=== PATIENT | male | born 1975 | race African-American/Black ===

== ENCOUNTER 2016-10-14 19:53 | Emergency (ER) | payer BC, MEDICAID, OTHER, SELFPAY ==
[2016-10-14 20:35] LABS: MEAN CORPUSCULAR HEMOGLOBIN 31.9 pg (27.0-33.0); MEAN CORPUSCULAR HGB CONC 33.6 g/dl (32.0-36.5); MEAN CORPUSCULAR VOLUME 94.9 fl (80.0-96.0); RED CELL DISTRIBUTION WIDTH 14.1 % (11.5-14.5); WHITE BLOOD COUNT 7.1 K/mm3 (4.0-10.0)
[2016-10-14 20:41] LABS: INR 0.85
[2016-10-14 20:51] LABS: ANION GAP 12 MEQ/L (8-16); BLOOD UREA NITROGEN 15 MG/DL (7-18); CALCIUM LEVEL 9.4 MG/DL (8.5-10.1); CARBON DIOXIDE LEVEL 25 MEQ/L (21-32); CHLORIDE LEVEL 101 MEQ/L (98-107); CREATININE FOR GFR 0.99 MG/DL (0.70-1.30); GLOMERULAR FILTRATION RATE > 60.0 (>60); GLUCOSE, FASTING 86 MG/DL (70-105); POTASSIUM SERUM 4.3 MEQ/L (3.5-5.1); SODIUM LEVEL 138 MEQ/L (136-145)
[2016-10-14] MEDS ORDERED: KETOROLAC 30 MG/ML VIAL (J1885) As Ordered ONE (20:56)
[2016-10-14] MEDS ORDERED: ASPIRIN 81 MG CHEW TABLET As Ordered ONE (20:56)
--- NOTE | 2016-10-15 01:57 | EDDOCDS ---
Physician Documentation [facility] Name: Tristen Beard Age: 41 yrs Sex: Male : 1975 Arrival Date: 10/14/2016 Time: 19:53 Bed 13 Private MD: NO PRIMARY PHYSICIAN, . Disposition: 10/15/16 01:29 Discharged to Home/Self Care. Impression: Chondrocostal junction syndrome [Tietze]. - Condition is Stable. - Discharge Instructions: Costochondritis. - Prescriptions for ketorolac 10 mg Oral Tablet - take 1 tablet by ORAL route 3 times per day As needed MDD- 30mg. Up to 5 days total use.; 15 tablet. - Medication Reconciliation, Local Pharmacy Hours form. - Follow up: Private Physician; When: Call to arrange an appointment; Reason: Recheck today's complaints. - Problem is new. - Symptoms have improved. Historical: - Allergies: no known allergies; - Home Meds: 1. none - PMHx: back and leg pain; - PSHx: none; - Social history: Smoking status: Patient uses tobacco products, light tobacco smoker. No barriers to communication noted, The patient speaks fluent Persian, Speaks appropriately for age. - Family history: Not pertinent. - : The pt / caregiver states he / she is not on anticoagulants. Home medication list is obtained from the patient. - Exposure Risk Screening:: None identified. Vital Signs: 10/14 19:56 BP 120 / 80; Pulse 95; Resp 18 S; Temp 98.7(O); Pulse Ox 99% on R/A; Weight 81.65 kg / gr2 180.01 lbs (R); Height 5 ft. 7 in. (170.18 cm) (R); Pain 6/10; 20:16 BP 129 / 83 (auto/); af2 20:20 Pulse 76 MON; Resp 18 S; Pulse Ox 100% on R/A; af2 20:31 BP 118 / 77 (auto/); af2 20:31 Pulse 80 MON; Resp 18 S; Pulse Ox 99% on R/A; af2 20:46 BP 121 / 83 (auto/); af2 20:46 Pulse 90 MON; Pulse Ox 97% ; af2 21:01 BP 127 / 90 (auto/); af2 21:02 Pulse 94 MON; Resp 18 S; Pulse Ox 100% on R/A; af2 21:16 BP 126 / 92 (auto/); af2 21:16 Pulse 74 MON; Resp 18 S; Pulse Ox 98% on R/A; af2 21:31 BP 119 / 83 (auto/); af2 21:31 Pulse 80 MON; Resp 18 S; Pulse Ox 98% on R/A; af2 21:46 BP 119 / 79 (auto/); af2 21:46 Pulse 76 MON; Resp 18 S; Pulse Ox 95% on R/A; af2 22:16 BP 123 / 84 (auto/); af2 22:16 Pulse 70 MON; Resp 18 S; Pulse Ox 97% on R/A; af2 22:31 BP 121 / 76 (auto/); af2 22:31 Pulse 66 MON; Resp 18 S; Pulse Ox 96% on R/A; af2 22:46 BP 119 / 69 (auto/); af2 22:46 Pulse 62 MON; Resp 18 S; Pulse Ox 97% on R/A; af2 23:01 BP 141 / 93 (auto/); af2 23:01 Pulse 76 MON; Resp 18 S; Pulse Ox 98% on R/A; af2 23:16 BP 138 / 89 (auto/); af2 23:16 Pulse 74 MON; Resp 18 S; Pulse Ox 97% on R/A; af2 10/15 01:54 BP 125 / 85; Pulse 84; Resp 18; Temp 98.4(O); Pulse Ox 99% on R/A; Pain 0/10; [facility] 10/14 19:56 Body Mass Index 28.19 (81.65 kg, 170.18 cm) gr2 MDM: 10/14 20:04 ECG WITH READING ER PHYS+CARDIAG ordered. EDMS 20:20 Aspirin 324 mg PO once ordered. cs11 20:20 IV Saline Lock ordered. cs11 20:21 Chest, 2 View (pa\E\lat) Ordered. EDMS 20:21 CBC Ordered. EDMS 20:21 MED Profile Ordered. EDMS 20:21 Pt & Aptt Ordered. EDMS 20:21 Cardiac Marker Panel Ordered. EDMS 20:53 ketorolac 30 mg IVP once ordered. cs11 21:05 Financial registration complete. lucina 21:09 [facility] Payment Agreement was scanned into [employer] and attached to record. gjb 21:42 [facility] Plug Wirer Order ordered. cs11 22:[facility] complete. jlm 22:22 CARDIAC INJURY PROFILE Ordered. EDMS 22:22 TROPONIN Ordered. EDMS 22:25 ELECTROCARDIOGRAM ADULT ordered. EDMS 10/15 01:26 Pt & Aptt Reviewed. cs11 01:26 CBC Reviewed. cs11 01:26 MED Profile Reviewed. cs11 : Cardiac Marker Panel Reviewed. cs11 : CARDIAC INJURY PROFILE Reviewed. cs11 : TROPONIN Reviewed. cs11 Administered Medications: 10/14 21:03 Drug: Aspirin 324 mg [aspirin 81 mg chewable tablet (4 tabs)] Route: PO; af2 21:03 Drug: ketorolac 30 mg [ketorolac 30 mg/mL (1 mL) injection solution (1 mL)] Route: IVP; af2 Site: right antecubital; Signatures: Dispatcher MedHost EDYuki MuroRN RN jo3 Carl Mcgee DO DO cs11 Meeta Philip, Registered Vascular Technologist (Rvt) Unit jlm Ирина Osuna RN RN af2 Brittaney Braswellb Jeniffer DominguezRN RN kas2 The chart was reviewed and I authenticate all verbal orders and agree with the evaluation and treatment provided.Attachments: 21:09 [facility] Payment Agreement gjb MTDD
--- NOTE | 2016-10-15 01:58 | EDDOCDS ---
Nurse's Notes [facility] Name: Tristen Beard Age: 41 yrs Sex: Male : 1975 Arrival Date: 10/14/2016 Time: 19:53 Bed 13 Private MD: NO PRIMARY PHYSICIAN, . Diagnosis: Chondrocostal junction syndrome [Tietze] Presentation: 10/14 20:12 Presenting complaint: Patient states: Sharp stabbing chest pain that started at 0130. jo3 Pain is to left anterior chest and has radiated intermittently to left upper back. also has intermittent sharp pain and tingling to left arm. Aspirin was not taken prior to arrival. Adult Sepsis Screening: The patient does not have new or worsening altered mentation. Patient's respiratory rate is less than 22. Systolic blood pressure is greater than 100. Patient has a qSOFA score of 0- Negative Sepsis Screen. Suicide/Homicide risk assessment- the patient denies having any suicidal and/or homicidal ideations and does not present with any other emotional, behavioral or mental health complaints. Status: Patient is not a food service clerk or dependent. Transition of care: patient was not received from another setting of care. 20:12 Acuity: MARE Level 2 jo3 20:12 Method Of Arrival: Walkin/Carried/Asstd jo3 Triage Assessment: 20:15 General: Appears in no apparent distress, Behavior is anxious, cooperative. HIV jo3 screening NA for this visit Offered previously. Neurological: Level of Consciousness is awake, alert, Oriented to person, place, time. Cardiovascular: Chest pain is described as severe, radiates to left arm(s) back episodes are continuous began 8 hours. Respiratory: Airway is patent Respiratory effort is even, unlabored. GI: Reports nausea, vomiting. Derm: Skin is normal. Historical: - Allergies: no known allergies; - Home Meds: 1. none - PMHx: back and leg pain; - PSHx: none; - Social history: Smoking status: Patient uses tobacco products, light tobacco smoker. No barriers to communication noted, The patient speaks fluent Nigerian, Speaks appropriately for age. - Family history: Not pertinent. - : The pt / caregiver states he / she is not on anticoagulants. Home medication list is obtained from the patient. - Exposure Risk Screening:: None identified. Screenin:03 Screening information is obtained from the patient. Fall risk: No risks identified. af2 Assistance ADL's: requires no assistance with activities of daily living. Abuse/DV Screen: The patient / caregiver reports he/she is: not in a situation that causes fear, pain or injury. Nutritional screening: No deficits noted. Advance Directives: Currently, there is no health care proxy. home support is adequate. Assessment: 20:15 General: Appears in no apparent distress, Behavior is cooperative. Pain: Location: af2 chest Pain currently is 7 out of 10 on a pain scale. Neurological: Level of Consciousness is awake, alert, obeys commands, Oriented to person, place, time. Cardiovascular: Rhythm is sinus rhythm No ectopy. Chest pain is described as Pain is 7 out of 10 on a pain scale. states pain is aggravated by pressure on the area.. Respiratory: Airway is patent Respiratory effort is even, unlabored, Breath sounds are clear bilaterally. Derm: Skin is intact, is healthy with good turgor, Skin is normal. 21:15 General: Appears in no apparent distress, Behavior is appropriate for age, cooperative, af2 pt and SO updated regarding plan of care. states pain has been relieved. . Cardiovascular: Rhythm is sinus rhythm No ectopy. Chest pain is denied. Respiratory: Airway is patent Respiratory effort is even, unlabored. Derm: Skin is normal. 22:15 General: Appears in no apparent distress, Behavior is appropriate for age, cooperative. af2 Neurological: Level of Consciousness is awake, alert, obeys commands, Oriented to person, place, time. Respiratory: Airway is patent Respiratory effort is even, unlabored. Derm: Skin is normal. 23:18 General: Appears in no apparent distress, Behavior is appropriate for age, cooperative. af2 Neurological: Level of Consciousness is awake, alert, obeys commands, Oriented to person, place, time. Respiratory: Airway is patent Respiratory effort is even, unlabored. Derm: Skin is normal. 23:37 General: pt ambulates to bathroom independent at this time.. af2 10/15 00:36 General: Appears in no apparent distress, Behavior is cooperative. Neurological: Level af2 of Consciousness is awake, alert, obeys commands, Oriented to person, place, time. Cardiovascular: Rhythm is sinus rhythm with PACs. Respiratory: Airway is patent Respiratory effort is even, unlabored. Derm: Skin is normal. Vital Signs: 10/14 19:56 BP 120 / 80; Pulse 95; Resp 18 S; Temp 98.7(O); Pulse Ox 99% on R/A; Weight 81.65 kg gr2 (R); Height 5 ft. 7 in. (170.18 cm) (R); Pain 6/10; 20:16 BP 129 / 83 (auto/); af2 20:20 Pulse 76 MON; Resp 18 S; Pulse Ox 100% on R/A; af2 20:31 BP 118 / 77 (auto/); af2 20:31 Pulse 80 MON; Resp 18 S; Pulse Ox 99% on R/A; af2 20:46 BP 121 / 83 (auto/); af2 20:46 Pulse 90 MON; Pulse Ox 97% ; af2 21:01 BP 127 / 90 (auto/); af2 21:02 Pulse 94 MON; Resp 18 S; Pulse Ox 100% on R/A; af2 21:16 BP 126 / 92 (auto/); af2 21:16 Pulse 74 MON; Resp 18 S; Pulse Ox 98% on R/A; af2 21:31 BP 119 / 83 (auto/); af2 21:31 Pulse 80 MON; Resp 18 S; Pulse Ox 98% on R/A; af2 21:46 BP 119 / 79 (auto/); af2 21:46 Pulse 76 MON; Resp 18 S; Pulse Ox 95% on R/A; af2 22:16 BP 123 / 84 (auto/); af2 22:16 Pulse 70 MON; Resp 18 S; Pulse Ox 97% on R/A; af2 22:31 BP 121 / 76 (auto/); af2 22:31 Pulse 66 MON; Resp 18 S; Pulse Ox 96% on R/A; af2 22:46 BP 119 / 69 (auto/); af2 22:46 Pulse 62 MON; Resp 18 S; Pulse Ox 97% on R/A; af2 23:01 BP 141 / 93 (auto/); af2 23:01 Pulse 76 MON; Resp 18 S; Pulse Ox 98% on R/A; af2 23:16 BP 138 / 89 (auto/); af2 23:16 Pulse 74 MON; Resp 18 S; Pulse Ox 97% on R/A; af2 10/15 01:54 BP 125 / 85; Pulse 84; Resp 18; Temp 98.4(O); Pulse Ox 99% on R/A; Pain 0/10; kas2 10/14 19:56 Body Mass Index 28.19 (81.65 kg, 170.18 cm) gr2 Vitals: 10/14 19:56 Log In Time: October 14, 2016 at 19:56. gr2 19:57 RN notified that patient meets Red Flag criteria. gr2 ED Course: 19:54 Patient visited by Patt Johnson. gr2 19:54 Patient moved to Waiting gr2 19:55 NO PRIMARY PHYSICIAN, . is Private Physician. gr2 19:57 Patient visited by Patt Johnson. gr2 20:03 Ирина OsunaRN is Primary Nurse. jo3 20:03 Patient moved to 10 jo3 20:06 Carl Mcgee DO is Attending Physician. cs11 20:06 Patient visited by Carl Mcgee DO. cs11 20:07 EKG done. (by ED staff). Reviewed by Carl Mcgee DO. jb5 20:11 Patient visited by Asia Briones PCA. jb5 20:15 Triage Initiated jo3 20:15 technical clerk on. Pulse ox on. NIBP on. af2 20:15 Inserted saline lock: 18 gauge in right antecubital area and blood collected. The af2 patient tolerated the procedure well. 20:18 Patient visited by Yuki Reyna RN. jo3 20:54 Patient visited by Anastacia Lucas RN. lf1 21:04 The patient / caregiver is instructed regarding the plan of care and ED course. af2 21:06 Patient visited by Ирина Osuna RN. af2 21:09 [facility] Payment Agreement was scanned into [employer] and attached to record. gjb 21:55 Patient visited by Ирина Osuna RN. af2 22:28 Patient visited by Ирина Osuna RN. af2 23:17 Patient visited by Ирина Osuna RN. af2 23:19 Patient visited by Ирина Osuna RN. af2 23:38 Patient visited by Ирина Osuna RN. af2 23:57 Patient moved to 13 af2 10/15 00:05 Patient visited by Sergei Salmeron PCA. jmv 00:05 EKG done. (by ED staff). Reviewed by Carl Mcgee DO. jmv 00:38 Patient visited by Ирина Osuna RN. af2 01:09 Patient visited by Ирина Osuna RN. af2 01:55 Discontinued IV bleeding controlled, pressure dressing applied, No redness/swelling at kas2 site. No procedures done that require assistance. Administered Medications: 10/14 21:03 Drug: Aspirin 324 mg [aspirin 81 mg chewable tablet (4 tabs)] Route: PO; af2 21:03 Drug: ketorolac 30 mg [ketorolac 30 mg/mL (1 mL) injection solution (1 mL)] Route: IVP; af2 Site: right antecubital; Order Results: Lab Order: CBC; SPEC'M 10/14/16 20:18 Test: WHITE BLOOD COUNT; Value: 7.1; Range: 4.0-10.0; Units: K/mm3; Status: F Test: RED BLOOD COUNT; Value: 5.15; Range: 4.30-6.10; Units: M/mm3; Status: F Test: HEMOGLOBIN; Value: 16.4; Range: 14.0-18.0; Units: g/dl; Status: F Test: HEMATOCRIT; Value: 48.8; Range: 42.0-52.0; Units: %; Status: F Test: MEAN CORPUSCULAR VOLUME; Value: 94.9; Range: 80.0-96.0; Units: fl; Status: F Test: MEAN CORPUSCULAR HEMOGLOBIN; Value: 31.9; Range: 27.0-33.0; Units: pg; Status: F Test: MEAN CORPUSCULAR HGB CONC; Value: 33.6; Range: 32.0-36.5; Units: g/dl; Status: F Test: RED CELL DISTRIBUTION WIDTH; Value: 14.1; Range: 11.5-14.5; Units: %; Status: F Test: PLATELET COUNT, AUTOMATED; Value: 287; Range: 150-450; Units: k/mm3; Status: F Lab Order: MED Profile; SPEC'M 10/14/16 20:18 Test: GLUCOSE, FASTING; Value: 86; Range: 70-105; Units: MG/DL; Status: F Test: BLOOD UREA NITROGEN; Value: 15; Range: 7-18; Units: MG/DL; Status: F Test: CREATININE FOR GFR; Value: 0.99; Range: 0.70-1.30; Units: MG/DL; Status: F Test: GLOMERULAR FILTRATION RATE; Value: > 60.0; Range: >60; Status: F Test: SODIUM LEVEL; Value: 138; Range: 136-145; Units: MEQ/L; Status: F Test: POTASSIUM SERUM; Value: 4.3; Range: 3.5-5.1; Units: MEQ/L; Status: F Test: CHLORIDE LEVEL; Value: 101; Range: 98-107; Units: MEQ/L; Status: F Test: CARBON DIOXIDE LEVEL; Value: 25; Range: 21-32; Units: MEQ/L; Status: F Test: ANION GAP; Value: 12; Range: 8-16; Units: MEQ/L; Status: F Test: CALCIUM LEVEL; Value: 9.4; Range: 8.5-10.1; Units: MG/DL; Status: F Test Note: ; Units are mL/min/1.73 m2 Chronic Kidney Disease Staging per NKF: Stage I & II GFR >=60 Normal to Mildly Decreased Stage III GFR 30-59 Moderately Decreased Stage IV GFR 15-29 Severely Decreased Stage V GFR <15 Very Little GFR Left ESRD GFR <15 on NETWORK SUPPORT Lab Order: Pt & Aptt; SPEC'M 10/14/16 20:18 Test: PROTHROMBIN TIME; Value: 11.7; Range: 12.3-14.5; Abnormal: Below low normal; Units: SECONDS; Status: F Test: INR; Value: 0.85; Status: F Test: PARTIAL THROMBOPLASTIN TIME; Value: 25.9; Range: 26.6-37.1; Abnormal: Below low normal; Units: SECONDS; Status: F Test Note: ; THERAPUTIC HUMAN INR VALUES INDICATIONS NORMAL RANGES PROPHYLAXIS/TREATMENT OF: VENOUS THROMBOSIS 2.0-3.0 PULMONARY EMBOLISM 2.0-3.0 PREVENTION OF SYSTEMIC EMBOLISM FROM: TISSUE HEART VALVES 2.0-3.0 ACUTE MYOCARDIAL INFARCTION 2.0-3.0 VALVULAR HEART DISEASE 2.0-3.0 ATRIAL FIBRILLATION 2.0-3.0 MECHANICAL VALVES(HIGH RISK) 2.5-3.5 RECURRENT MYOCARDIAL INFARCTION 2.5-3.5 Lab Order: Cardiac Marker Panel; [facility] 10/14/16 20:18 Test: CPK CREATINE PHOSPHOKINASE; Value: 143; Range: 39-308; Units: U/L; Status: F Test: CK-MB VALUE MASS; Value: 1.0; Range: 0.0-3.6; Units: NG/ML; Status: F Test: MB/CK RELATIVE INDEX; Value: 0.69; Range: < OR =4; Status: F Test: TROPONIN I; Value: < 0.02; Range: < 0.10; Units: NG/ML; Status: F Test Note: ; DIAGNOSIS CRITERIA MMB ng/ml Relative Index (RI) NON-AMI < or = 5 N/A JAVIER ZONE > 5 < or = 4 AMI > 5 > 4 Lab Order: CARDIAC INJURY PROFILE; [facility] 10/15/16 00:06 Test: CPK CREATINE PHOSPHOKINASE; Value: 145; Range: 39-308; Units: U/L; Status: F Test: CK-MB VALUE MASS; Value: 1.0; Range: 0.0-3.6; Units: NG/ML; Status: F Test: MB/CK RELATIVE INDEX; Value: 0.68; Range: < OR =4; Status: F Test Note: ; DIAGNOSIS CRITERIA MMB ng/ml Relative Index (RI) NON-AMI < or = 5 N/A JAVIER ZONE > 5 < or = 4 AMI > 5 > 4 Lab Order: TROPONIN; [facility] 10/15/16 00:06 Test: TROPONIN I; Value: < 0.02; Range: < 0.10; Units: NG/ML; Status: F Test Note: ; Troponin I Reference Interval for [employer] LOCI: 99th Percentile= 0.00-0.045 ng/ml Risk Stratification: <= 0.10 ng/ml Decreased Risk for Adverse Clinical Events. 0.10-1.50 ng/ml Increased Risk for Adverse Clinical Events. Evaluation of additional criterion and/or repeat testing in 2-6 hours is suggested to rule out myocardial damage. >= 1.50 ng/ml Indicative of Myocardial Injury. Outcome: 10/15 01:29 Discharge ordered by Provider. cs11 01:55 Discharge Assessment:. kas2 01:55 Discharge Assessment: patient administered narcotics - no. The following High Risk [facility] Discharge criteria are identified: None. Discharged to home ambulatory, with significant other. Condition: good Condition: stable Condition: improved. Property :Personal belongings accompany Pt. 01:56 No special radiology studies were completed. [facility] 01:56 Patient left the ED. [facility] Signatures: Asia Briones, GREEN WARE CASTER GREEN WARE CASTER jb5 Yuki ReynaRN RN javi3 Anastacia Lucas,RN RN lf1 Carl Mcgee, DO cs11 Patt Johnson 2 Ирина OsunaRN RN [id number] Brittaney Braswell Kim, RN RN kas2 Sergei Salmeron, GREEN WARE CASTER GREEN WARE CASTER jmv MTDD
--- NOTE | 2016-10-16 00:50 | ECGEPIP ---
Stationary ECG Study [facility] Test Date: 2016-10-15 Pat Name: MARGUERITE ABDI Department: Room: - Gender: M Key Account Executive: jay : 1975 Requested By: GELY KAUFMAN Order Number: [id number] Reading MD: Chris Davis Measurements Intervals [place] Rate: 71 P: 62 VA: 162 QRS: -6 QRSD: 89 T: 23 QT: 340 QTc: 371 Interpretive Statements SINUS RHYTHM WITH SINUS ARRHYTHMIA POSSIBLE SEPTAL MYOCARDIAL INFARCTION, OF INDETERMINATE AGE No prior tracing in the system Electronically Signed On 10-16-2016 0:49:51 EST by Chris Davis
--- NOTE | 2016-10-16 15:29 | ECGEPIP ---
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
--- NOTE | 2016-10-17 02:57 | EDDOCDS ---
Physician Documentation [facility] Name: Tristen Beard Age: 41 yrs Sex: Male : 1975 Arrival Date: 10/14/2016 Time: 19:53 Bed 13 Private MD: NO PRIMARY PHYSICIAN, . Disposition: 10/15/16 01:29 Discharged to Home/Self Care. Impression: Chondrocostal junction syndrome [Tietze]. - Condition is Stable. - Discharge Instructions: Costochondritis. - Prescriptions for ketorolac 10 mg Oral Tablet - take 1 tablet by ORAL route 3 times per day As needed MDD- 30mg. Up to 5 days total use.; 15 tablet. - Medication Reconciliation, Local Pharmacy Hours form. - Follow up: Private Physician; When: Call to arrange an appointment; Reason: Recheck today's complaints. - Problem is new. - Symptoms have improved. Historical: - Allergies: no known allergies; - Home Meds: 1. none - PMHx: back and leg pain; - PSHx: none; - Social history: Smoking status: Patient uses tobacco products, light tobacco smoker. No barriers to communication noted, The patient speaks fluent Kinyarwanda, Speaks appropriately for age. - Family history: Not pertinent. - : The pt / caregiver states he / she is not on anticoagulants. Home medication list is obtained from the patient. - Exposure Risk Screening:: None identified. Vital Signs: 10/14 19:56 BP 120 / 80; Pulse 95; Resp 18 S; Temp 98.7(O); Pulse Ox 99% on R/A; Weight 81.65 kg / gr2 180.01 lbs (R); Height 5 ft. 7 in. (170.18 cm) (R); Pain 6/10; 20:16 BP 129 / 83 (auto/); af2 20:20 Pulse 76 MON; Resp 18 S; Pulse Ox 100% on R/A; af2 20:31 BP 118 / 77 (auto/); af2 20:31 Pulse 80 MON; Resp 18 S; Pulse Ox 99% on R/A; af2 20:46 BP 121 / 83 (auto/); af2 20:46 Pulse 90 MON; Pulse Ox 97% ; af2 21:01 BP 127 / 90 (auto/); af2 21:02 Pulse 94 MON; Resp 18 S; Pulse Ox 100% on R/A; af2 21:16 BP 126 / 92 (auto/); af2 21:16 Pulse 74 MON; Resp 18 S; Pulse Ox 98% on R/A; af2 21:31 BP 119 / 83 (auto/); af2 21:31 Pulse 80 MON; Resp 18 S; Pulse Ox 98% on R/A; af2 21:46 BP 119 / 79 (auto/); af2 21:46 Pulse 76 MON; Resp 18 S; Pulse Ox 95% on R/A; af2 22:16 BP 123 / 84 (auto/); af2 22:16 Pulse 70 MON; Resp 18 S; Pulse Ox 97% on R/A; af2 22:31 BP 121 / 76 (auto/); af2 22:31 Pulse 66 MON; Resp 18 S; Pulse Ox 96% on R/A; af2 22:46 BP 119 / 69 (auto/); af2 22:46 Pulse 62 MON; Resp 18 S; Pulse Ox 97% on R/A; af2 23:01 BP 141 / 93 (auto/); af2 23:01 Pulse 76 MON; Resp 18 S; Pulse Ox 98% on R/A; af2 23:16 BP 138 / 89 (auto/); af2 23:16 Pulse 74 MON; Resp 18 S; Pulse Ox 97% on R/A; af2 10/15 01:54 BP 125 / 85; Pulse 84; Resp 18; Temp 98.4(O); Pulse Ox 99% on R/A; Pain 0/10; [facility] 10/14 19:56 Body Mass Index 28.19 (81.65 kg, 170.18 cm) gr2 MDM: 10/14 20:04 ECG WITH READING ER PHYS+CARDIAG ordered. EDMS 20:20 Aspirin 324 mg PO once ordered. cs11 20:20 IV Saline Lock ordered. cs11 20:21 Chest, 2 View (pa\E\lat) Ordered. EDMS 20:21 CBC Ordered. EDMS 20:21 MED Profile Ordered. EDMS 20:21 Pt & Aptt Ordered. EDMS 20:21 Cardiac Marker Panel Ordered. EDMS 20:53 ketorolac 30 mg IVP once ordered. cs11 21:05 Financial registration complete. lucina 21:09 [facility] Payment Agreement was scanned into [employer] and attached to record. gjb 21:42 Misc [employer] Order ordered. cs11 22:21 Misc [employer] Order complete. jlm 22:22 CARDIAC INJURY PROFILE Ordered. EDMS 22:22 TROPONIN Ordered. EDMS 22:25 ELECTROCARDIOGRAM ADULT ordered. EDMS 10/15 01:26 Pt & Aptt Reviewed. cs11 01:26 CBC Reviewed. cs11 01:26 MED Profile Reviewed. cs11 01:26 Cardiac Marker Panel Reviewed. cs11 01:26 CARDIAC INJURY PROFILE Reviewed. cs11 01:26 TROPONIN Reviewed. cs11 07:51 T-Sheet-- Draft Copy was scanned into [employer] and attached to record. gb 07:51 ECG/EKG was scanned into [employer] and attached to record. gb 07:52 Trend VS was scanned into RMI and attached to record. gb Administered Medications: 10/14 21:03 Drug: Aspirin 324 mg [aspirin 81 mg chewable tablet (4 tabs)] Route: PO; af2 21:03 Drug: ketorolac 30 mg [ketorolac 30 mg/mL (1 mL) injection solution (1 mL)] Route: IVP; af2 Site: right antecubital; Signatures: Dispatcher [employer] EDMS Danna Guevara, Reg Reg gb Yuki ReynaRN RN javi3 Carl Mcgee, DO cs11 Meeta Philip, Telemarketing Supervisor Unit Ирина Gonzales RN RN af2 Brittaney Braswell b Jeniffer DominguezRN RN kas2 The chart was reviewed and I authenticate all verbal orders and agree with the evaluation and treatment provided.Attachments: 21:09 [facility] Payment Agreement b 10/15 07:51 T-Sheet-- Draft Copy gb 07:51 ECG/EKG gb Chart Complete MTDD
--- NOTE | 2016-10-17 02:57 | EDDOCDS ---
Physician Documentation [facility] Name: Tristen Beard Age: 41 yrs Sex: Male : 1975 Arrival Date: 10/14/2016 Time: 19:53 Bed 13 Private MD: NO PRIMARY PHYSICIAN, . Disposition: 10/15/16 01:29 Discharged to Home/Self Care. Impression: Chondrocostal junction syndrome [Tietze]. - Condition is Stable. - Discharge Instructions: Costochondritis. - Prescriptions for ketorolac 10 mg Oral Tablet - take 1 tablet by ORAL route 3 times per day As needed MDD- 30mg. Up to 5 days total use.; 15 tablet. - Medication Reconciliation, Local Pharmacy Hours form. - Follow up: Private Physician; When: Call to arrange an appointment; Reason: Recheck today's complaints. - Problem is new. - Symptoms have improved. Historical: - Allergies: no known allergies; - Home Meds: 1. none - PMHx: back and leg pain; - PSHx: none; - Social history: Smoking status: Patient uses tobacco products, light tobacco smoker. No barriers to communication noted, The patient speaks fluent Divehi, Speaks appropriately for age. - Family history: Not pertinent. - : The pt / caregiver states he / she is not on anticoagulants. Home medication list is obtained from the patient. - Exposure Risk Screening:: None identified. Vital Signs: 10/14 19:56 BP 120 / 80; Pulse 95; Resp 18 S; Temp 98.7(O); Pulse Ox 99% on R/A; Weight 81.65 kg / gr2 180.01 lbs (R); Height 5 ft. 7 in. (170.18 cm) (R); Pain 6/10; 20:16 BP 129 / 83 (auto/); af2 20:20 Pulse 76 MON; Resp 18 S; Pulse Ox 100% on R/A; af2 20:31 BP 118 / 77 (auto/); af2 20:31 Pulse 80 MON; Resp 18 S; Pulse Ox 99% on R/A; af2 20:46 BP 121 / 83 (auto/); af2 20:46 Pulse 90 MON; Pulse Ox 97% ; af2 21:01 BP 127 / 90 (auto/); af2 21:02 Pulse 94 MON; Resp 18 S; Pulse Ox 100% on R/A; af2 21:16 BP 126 / 92 (auto/); af2 21:16 Pulse 74 MON; Resp 18 S; Pulse Ox 98% on R/A; af2 21:31 BP 119 / 83 (auto/); af2 21:31 Pulse 80 MON; Resp 18 S; Pulse Ox 98% on R/A; af2 21:46 BP 119 / 79 (auto/); af2 21:46 Pulse 76 MON; Resp 18 S; Pulse Ox 95% on R/A; af2 22:16 BP 123 / 84 (auto/); af2 22:16 Pulse 70 MON; Resp 18 S; Pulse Ox 97% on R/A; af2 22:31 BP 121 / 76 (auto/); af2 22:31 Pulse 66 MON; Resp 18 S; Pulse Ox 96% on R/A; af2 22:46 BP 119 / 69 (auto/); af2 22:46 Pulse 62 MON; Resp 18 S; Pulse Ox 97% on R/A; af2 23:01 BP 141 / 93 (auto/); af2 23:01 Pulse 76 MON; Resp 18 S; Pulse Ox 98% on R/A; af2 23:16 BP 138 / 89 (auto/); af2 23:16 Pulse 74 MON; Resp 18 S; Pulse Ox 97% on R/A; af2 10/15 01:54 BP 125 / 85; Pulse 84; Resp 18; Temp 98.4(O); Pulse Ox 99% on R/A; Pain 0/10; [facility] 10/14 19:56 Body Mass Index 28.19 (81.65 kg, 170.18 cm) gr2 MDM: 10/14 20:04 ECG WITH READING ER PHYS+CARDIAG ordered. EDMS 20:20 Aspirin 324 mg PO once ordered. cs11 20:20 IV Saline Lock ordered. cs11 20:21 Chest, 2 View (pa\E\lat) Ordered. EDMS 20:21 CBC Ordered. EDMS 20:21 MED Profile Ordered. EDMS 20:21 Pt & Aptt Ordered. EDMS 20:21 Cardiac Marker Panel Ordered. EDMS 20:53 ketorolac 30 mg IVP once ordered. cs11 21:05 Financial registration complete. lucina 21:09 [facility] Payment Agreement was scanned into [employer] by Wallace and attached to record. gjb 21:42 Misc Multiple Tube Winding Machine Operator Order ordered. cs11 22:21 Misc Multiple Tube Winding Machine Operator Order complete. jlm 22:22 CARDIAC INJURY PROFILE Ordered. EDMS 22:22 TROPONIN Ordered. EDMS 22:25 ELECTROCARDIOGRAM ADULT ordered. EDMS 10/15 01:26 Pt & Aptt Reviewed. cs11 01:26 CBC Reviewed. cs11 01:26 MED Profile Reviewed. cs11 01:26 Cardiac Marker Panel Reviewed. cs11 01:26 CARDIAC INJURY PROFILE Reviewed. cs11 01:26 TROPONIN Reviewed. cs11 07:51 T-Sheet-- Draft Copy was scanned into [employer] and attached to record. gb 07:51 ECG/EKG was scanned into [employer] and attached to record. gb 07:52 Trend VS was scanned into [employer] by Wallace and attached to record. gb Administered Medications: 10/14 21:03 Drug: Aspirin 324 mg [aspirin 81 mg chewable tablet (4 tabs)] Route: PO; af2 21:03 Drug: ketorolac 30 mg [ketorolac 30 mg/mL (1 mL) injection solution (1 mL)] Route: IVP; af2 Site: right antecubital; Signatures: Dispatcher [employer] EDMS Danna Guevara, Reg Reg gb Yuki ReynaRN RN javi3 Carl Mcgee, DO cs11 Meeta Pihlip, Heating Equipment Repairer Unit Ирина Gonzales RN RN af2 Brittaney Braswell b Jeniffer DominguezRN RN kas2 The chart was reviewed and I authenticate all verbal orders and agree with the evaluation and treatment provided.Attachments: 21:09 [facility] Payment Agreement b 10/15 07:51 T-Sheet-- Draft Copy gb 07:51 ECG/EKG gb Chart Complete MTDD
--- NOTE | 2016-10-17 02:57 | EDDOCDS ---
Nurse's Notes [facility] Name: Tristen Abdi Age: 41 yrs Sex: Male : 1975 Arrival Date: 10/14/2016 Time: 19:53 Bed 13 Private MD: NO PRIMARY PHYSICIAN, . Diagnosis: Chondrocostal junction syndrome [Tietze] Presentation: 10/14 20:12 Presenting complaint: Patient states: Sharp stabbing chest pain that started at 0130. jo3 Pain is to left anterior chest and has radiated intermittently to left upper back. also has intermittent sharp pain and tingling to left arm. Aspirin was not taken prior to arrival. Adult Sepsis Screening: The patient does not have new or worsening altered mentation. Patient's respiratory rate is less than 22. Systolic blood pressure is greater than 100. Patient has a qSOFA score of 0- Negative Sepsis Screen. Suicide/Homicide risk assessment- the patient denies having any suicidal and/or homicidal ideations and does not present with any other emotional, behavioral or mental health complaints. Status: Patient is not a service delivery director or dependent. Transition of care: patient was not received from another setting of care. 20:12 Acuity: MARE Level 2 jo3 20:12 Method Of Arrival: Walkin/Carried/Asstd jo3 Triage Assessment: 20:15 General: Appears in no apparent distress, Behavior is anxious, cooperative. HIV jo3 screening NA for this visit Offered previously. Neurological: Level of Consciousness is awake, alert, Oriented to person, place, time. Cardiovascular: Chest pain is described as severe, radiates to left arm(s) back episodes are continuous began 8 hours. Respiratory: Airway is patent Respiratory effort is even, unlabored. GI: Reports nausea, vomiting. Derm: Skin is normal. Historical: - Allergies: no known allergies; - Home Meds: 1. none - PMHx: back and leg pain; - PSHx: none; - Social history: Smoking status: Patient uses tobacco products, light tobacco smoker. No barriers to communication noted, The patient speaks fluent Cape Verdean, Speaks appropriately for age. - Family history: Not pertinent. - : The pt / caregiver states he / she is not on anticoagulants. Home medication list is obtained from the patient. - Exposure Risk Screening:: None identified. Screenin:03 Screening information is obtained from the patient. Fall risk: No risks identified. af2 Assistance ADL's: requires no assistance with activities of daily living. Abuse/DV Screen: The patient / caregiver reports he/she is: not in a situation that causes fear, pain or injury. Nutritional screening: No deficits noted. Advance Directives: Currently, there is no health care proxy. home support is adequate. Assessment: 20:15 General: Appears in no apparent distress, Behavior is cooperative. Pain: Location: af2 chest Pain currently is 7 out of 10 on a pain scale. Neurological: Level of Consciousness is awake, alert, obeys commands, Oriented to person, place, time. Cardiovascular: Rhythm is sinus rhythm No ectopy. Chest pain is described as Pain is 7 out of 10 on a pain scale. states pain is aggravated by pressure on the area.. Respiratory: Airway is patent Respiratory effort is even, unlabored, Breath sounds are clear bilaterally. Derm: Skin is intact, is healthy with good turgor, Skin is normal. 21:15 General: Appears in no apparent distress, Behavior is appropriate for age, cooperative, af2 pt and SO updated regarding plan of care. states pain has been relieved. . Cardiovascular: Rhythm is sinus rhythm No ectopy. Chest pain is denied. Respiratory: Airway is patent Respiratory effort is even, unlabored. Derm: Skin is normal. 22:15 General: Appears in no apparent distress, Behavior is appropriate for age, cooperative. af2 Neurological: Level of Consciousness is awake, alert, obeys commands, Oriented to person, place, time. Respiratory: Airway is patent Respiratory effort is even, unlabored. Derm: Skin is normal. 23:18 General: Appears in no apparent distress, Behavior is appropriate for age, cooperative. af2 Neurological: Level of Consciousness is awake, alert, obeys commands, Oriented to person, place, time. Respiratory: Airway is patent Respiratory effort is even, unlabored. Derm: Skin is normal. 23:37 General: pt ambulates to bathroom independent at this time.. af2 10/15 00:36 General: Appears in no apparent distress, Behavior is cooperative. Neurological: Level af2 of Consciousness is awake, alert, obeys commands, Oriented to person, place, time. Cardiovascular: Rhythm is sinus rhythm with PACs. Respiratory: Airway is patent Respiratory effort is even, unlabored. Derm: Skin is normal. Vital Signs: 10/14 19:56 BP 120 / 80; Pulse 95; Resp 18 S; Temp 98.7(O); Pulse Ox 99% on R/A; Weight 81.65 kg gr2 (R); Height 5 ft. 7 in. (170.18 cm) (R); Pain 6/10; 20:16 BP 129 / 83 (auto/); af2 20:20 Pulse 76 MON; Resp 18 S; Pulse Ox 100% on R/A; af2 20:31 BP 118 / 77 (auto/); af2 20:31 Pulse 80 MON; Resp 18 S; Pulse Ox 99% on R/A; af2 20:46 BP 121 / 83 (auto/); af2 20:46 Pulse 90 MON; Pulse Ox 97% ; af2 21:01 BP 127 / 90 (auto/); af2 21:02 Pulse 94 MON; Resp 18 S; Pulse Ox 100% on R/A; af2 21:16 BP 126 / 92 (auto/); af2 21:16 Pulse 74 MON; Resp 18 S; Pulse Ox 98% on R/A; af2 21:31 BP 119 / 83 (auto/); af2 21:31 Pulse 80 MON; Resp 18 S; Pulse Ox 98% on R/A; af2 21:46 BP 119 / 79 (auto/); af2 21:46 Pulse 76 MON; Resp 18 S; Pulse Ox 95% on R/A; af2 22:16 BP 123 / 84 (auto/); af2 22:16 Pulse 70 MON; Resp 18 S; Pulse Ox 97% on R/A; af2 22:31 BP 121 / 76 (auto/); af2 22:31 Pulse 66 MON; Resp 18 S; Pulse Ox 96% on R/A; af2 22:46 BP 119 / 69 (auto/); af2 22:46 Pulse 62 MON; Resp 18 S; Pulse Ox 97% on R/A; af2 23:01 BP 141 / 93 (auto/); af2 23:01 Pulse 76 MON; Resp 18 S; Pulse Ox 98% on R/A; af2 23:16 BP 138 / 89 (auto/); af2 23:16 Pulse 74 MON; Resp 18 S; Pulse Ox 97% on R/A; af2 10/15 01:54 BP 125 / 85; Pulse 84; Resp 18; Temp 98.4(O); Pulse Ox 99% on R/A; Pain 0/10; kas2 10/14 19:56 Body Mass Index 28.19 (81.65 kg, 170.18 cm) gr2 Vitals: 10/14 19:56 Log In Time: October 14, 2016 at 19:56. gr2 19:57 RN notified that patient meets Red Flag criteria. gr2 ED Course: 19:54 Patient visited by Patt Johnson. gr2 19:54 Patient moved to Waiting gr2 19:55 NO PRIMARY PHYSICIAN, . is Private Physician. gr2 19:57 Patient visited by Patt Johnson. gr2 20:03 Ирина OsunaRN is Primary Nurse. jo3 20:03 Patient moved to 10 jo3 20:06 Carl Kaufman DO is Attending Physician. cs11 20:06 Patient visited by Carl Kaufman DO. cs11 20:07 EKG done. (by ED staff). Reviewed by Carl Kaufman DO. jb5 20:11 Patient visited by Asia Briones PCA. jb5 20:15 Triage Initiated jo3 20:15 monitoring manager on. Pulse ox on. NIBP on. af2 20:15 Inserted saline lock: 18 gauge in right antecubital area and blood collected. The af2 patient tolerated the procedure well. 20:18 Patient visited by Yuki Reyna RN. jo3 20:54 Patient visited by Anastacia Lucas RN. lf1 21:04 The patient / caregiver is instructed regarding the plan of care and ED course. af2 21:06 Patient visited by Ирина Osuna RN. af2 21:09 [facility] Payment Agreement was scanned into [employer] and attached to record. gjb 21:55 Patient visited by Ирина Osuna RN. af2 22:28 Patient visited by Ирина Osuna RN. af2 23:17 Patient visited by Ирина Osuna RN. af2 23:19 Patient visited by Ирина Osuna RN. af2 23:38 Patient visited by Ирина Osuna RN. af2 23:57 Patient moved to 13 af2 10/15 00:05 Patient visited by Sergei Salmeron PCA. jmv 00:05 EKG done. (by ED staff). Reviewed by Carl Kaufman DO. jmv 00:38 Patient visited by Ирина OsunaRN. af2 01:09 Patient visited by Ирина Osuna RN. af2 01:55 Discontinued IV bleeding controlled, pressure dressing applied, No redness/swelling at kas2 site. No procedures done that require assistance. 07:51 T-Sheet-- Draft Copy was scanned into [employer] and attached to record. gb 07:51 ECG/EKG was scanned into [employer] and attached to record. gb 07:52 Trend VS was scanned into [employer] and attached to record. gb 10/16 00:56 ELECTROCARDIOGRAM ADULT Returned. EDMS 15:31 EKG-ADULT Returned. EDMS Administered Medications: 10/14 21:03 Drug: Aspirin 324 mg [aspirin 81 mg chewable tablet (4 tabs)] Route: PO; af2 21:03 Drug: ketorolac 30 mg [ketorolac 30 mg/mL (1 mL) injection solution (1 mL)] Route: IVP; af2 Site: right antecubital; Attachments: 07:52 Trend VS gb Order Results: Lab Order: CBC; SPEC'M 10/14/16 20:18 Test: WHITE BLOOD COUNT; Value: 7.1; Range: 4.0-10.0; Units: K/mm3; Status: F Test: RED BLOOD COUNT; Value: 5.15; Range: 4.30-6.10; Units: M/mm3; Status: F Test: HEMOGLOBIN; Value: 16.4; Range: 14.0-18.0; Units: g/dl; Status: F Test: HEMATOCRIT; Value: 48.8; Range: 42.0-52.0; Units: %; Status: F Test: MEAN CORPUSCULAR VOLUME; Value: 94.9; Range: 80.0-96.0; Units: fl; Status: F Test: MEAN CORPUSCULAR HEMOGLOBIN; Value: 31.9; Range: 27.0-33.0; Units: pg; Status: F Test: MEAN CORPUSCULAR HGB CONC; Value: 33.6; Range: 32.0-36.5; Units: g/dl; Status: F Test: RED CELL DISTRIBUTION WIDTH; Value: 14.1; Range: 11.5-14.5; Units: %; Status: F Test: PLATELET COUNT, AUTOMATED; Value: 287; Range: 150-450; Units: k/mm3; Status: F Lab Order: MED Profile; SPEC'M 10/14/16 20:18 Test: GLUCOSE, FASTING; Value: 86; Range: 70-105; Units: MG/DL; Status: F Test: BLOOD UREA NITROGEN; Value: 15; Range: 7-18; Units: MG/DL; Status: F Test: CREATININE FOR GFR; Value: 0.99; Range: 0.70-1.30; Units: MG/DL; Status: F Test: GLOMERULAR FILTRATION RATE; Value: > 60.0; Range: >60; Status: F Test: SODIUM LEVEL; Value: 138; Range: 136-145; Units: MEQ/L; Status: F Test: POTASSIUM SERUM; Value: 4.3; Range: 3.5-5.1; Units: MEQ/L; Status: F Test: CHLORIDE LEVEL; Value: 101; Range: 98-107; Units: MEQ/L; Status: F Test: CARBON DIOXIDE LEVEL; Value: 25; Range: 21-32; Units: MEQ/L; Status: F Test: ANION GAP; Value: 12; Range: 8-16; Units: MEQ/L; Status: F Test: CALCIUM LEVEL; Value: 9.4; Range: 8.5-10.1; Units: MG/DL; Status: F Test Note: ; Units are mL/min/1.73 m2 Chronic Kidney Disease Staging per NKF: Stage I & II GFR >=60 Normal to Mildly Decreased Stage III GFR 30-59 Moderately Decreased Stage IV GFR 15-29 Severely Decreased Stage V GFR <15 Very Little GFR Left ESRD GFR <15 on CREDIT ADMINISTRATION OFFICER Lab Order: Pt & Aptt; SPEC'M 10/14/16 20:18 Test: PROTHROMBIN TIME; Value: 11.7; Range: 12.3-14.5; Abnormal: Below low normal; Units: SECONDS; Status: F Test: INR; Value: 0.85; Status: F Test: PARTIAL THROMBOPLASTIN TIME; Value: 25.9; Range: 26.6-37.1; Abnormal: Below low normal; Units: SECONDS; Status: F Test Note: ; THERAPUTIC HUMAN INR VALUES INDICATIONS NORMAL RANGES PROPHYLAXIS/TREATMENT OF: VENOUS THROMBOSIS 2.0-3.0 PULMONARY EMBOLISM 2.0-3.0 PREVENTION OF SYSTEMIC EMBOLISM FROM: TISSUE HEART VALVES 2.0-3.0 ACUTE MYOCARDIAL INFARCTION 2.0-3.0 VALVULAR HEART DISEASE 2.0-3.0 ATRIAL FIBRILLATION 2.0-3.0 MECHANICAL VALVES(HIGH RISK) 2.5-3.5 RECURRENT MYOCARDIAL INFARCTION 2.5-3.5 Lab Order: Cardiac Marker Panel; SPEC' 10/14/16 20:18 Test: CPK CREATINE PHOSPHOKINASE; Value: 143; Range: 39-308; Units: U/L; Status: F Test: CK-MB VALUE MASS; Value: 1.0; Range: 0.0-3.6; Units: NG/ML; Status: F Test: MB/CK RELATIVE INDEX; Value: 0.69; Range: < OR =4; Status: F Test: TROPONIN I; Value: < 0.02; Range: < 0.10; Units: NG/ML; Status: F Test Note: ; DIAGNOSIS CRITERIA MMB ng/ml Relative Index (RI) NON-AMI < or = 5 N/A JAVIER ZONE > 5 < or = 4 AMI > 5 > 4 Lab Order: CARDIAC INJURY PROFILE; SPEC' 10/15/16 00:06 Test: CPK CREATINE PHOSPHOKINASE; Value: 145; Range: 39-308; Units: U/L; Status: F Test: CK-MB VALUE MASS; Value: 1.0; Range: 0.0-3.6; Units: NG/ML; Status: F Test: MB/CK RELATIVE INDEX; Value: 0.68; Range: < OR =4; Status: F Test Note: ; DIAGNOSIS CRITERIA MMB ng/ml Relative Index (RI) NON-AMI < or = 5 N/A JAVIER ZONE > 5 < or = 4 AMI > 5 > 4 Lab Order: TROPONIN; SPEC 10/15/16 00:06 Test: TROPONIN I; Value: < 0.02; Range: < 0.10; Units: NG/ML; Status: F Test Note: ; Troponin I Reference Interval for [employer] LOCI: 99th Percentile= 0.00-0.045 ng/ml Risk Stratification: <= 0.10 ng/ml Decreased Risk for Adverse Clinical Events. 0.10-1.50 ng/ml Increased Risk for Adverse Clinical Events. Evaluation of additional criterion and/or repeat testing in 2-6 hours is suggested to rule out myocardial damage. >= 1.50 ng/ml Indicative of Myocardial Injury. Radiology Order: EKG-ADULT Test: EKG-ADULT REASON FOR EXAMINATION: Chest Pain; Stationary ECG Study; [facility] - ED; ; Test Date: 2016-10-14; Pat Name: TRISTEN ABDI Department:; Room: -; Gender: M Brass Reclaimer:; : 1975 Requested By: CARL KAUFMAN; Order Number: [id number] Reading MD: Jennifer Lopez; Measurements; Intervals [place]; Rate: 93 P: 64; SD: 155 QRS: -14; QRSD: 80 T: 37; QT: 312; QTc: 389; Interpretive Statements; SINUS RHYTHM; SEPTAL MYOCARDIAL INFARCTION, OF INDETERMINATE AGE; NO PRIOR FOR COMPARISON; Electronically Signed On 10-16-2016 15:28:48 EST by Jennifer Lopez; Radiology Order: ELECTROCARDIOGRAM ADULT Test: ELECTROCARDIOGRAM ADULT REASON FOR EXAMINATION: REPEAT; Stationary ECG Study; [facility]; ; Test Date: 2016-10-15; Pat Name: [facility] Department:; Room: -; Gender: M Brass Reclaimer: jay; : 1975 Requested By: CARL KAUFMAN; Order Number: [id number] Reading MD: Chris Davis; Measurements; Intervals [place]; Rate: 71 P: 62; SD: 162 QRS: -6; QRSD: 89 T: 23; QT: 340; QTc: 371; Interpretive Statements; SINUS RHYTHM WITH SINUS ARRHYTHMIA; POSSIBLE SEPTAL MYOCARDIAL INFARCTION, OF INDETERMINATE AGE; No prior tracing in the system; Electronically Signed On 10-16-2016 0:49:51 EST by Chris Davis; Outcome: :29 Discharge ordered by Provider. cs11 01:55 Discharge Assessment:. kas2 01:55 Discharge Assessment: patient administered narcotics - no. The following High Risk [facility] Discharge criteria are identified: None. Discharged to home ambulatory, with significant other. Condition: good Condition: stable Condition: improved. Property :Personal belongings accompany Pt. 01:56 No special radiology studies were completed. kas2 01:56 Patient left the ED. kas2 Signatures: Dispatcher [employer] EDMS Danna Guevara, Reg Reg Asia Brooks, GARMENT PRESSER GARMENT PRESSER jb5 Yuki Reyna,RN RN jo3 Anastacia LucasRN RN lf1 Carl Kaufman, DO cs11 Patt Johnson 2 Ирина Osuna RN RN af2 Brittaney Braswell Kim, RN RN paz2 Sergei Salmeron, GARMENT PRESSER GARMENT PRESSER jmv Chart Complete MTDD
--- NOTE | 2016-10-17 08:29 | REP ---
PA and lateral chest: There are no comparisons. The lung ratliff are clear. The cardiac size is normal The elisha, mediastinum, and bony thorax are unremarkable. Impression: Negative PA and lateral chest. Signed by Hubert Calvert MD 10/15/2016 07:57 A
== END 2016-10-15 01:56 | disposition home or self-care (01) ==
LOC: M ED 19:53
DX: R07.1 Chest pain on breathing (principal); R94.31 Abnormal electrocardiogram [ECG] [EKG]; M54.9 Dorsalgia, unspecified; M79.606 Pain in leg, unspecified; Z72.0 Tobacco use
CPT/HCPCS: 36415; 71020; 80048; 82550; 82553; 85027; 85610; 85730; 93005; 96374; 99285; J1885